=== PATIENT | male | born 1940 | race Caucasian/White ===

== ENCOUNTER 2016-06-18 01:51 | Day surgery (SDC) | payer MEDICARE ==
[~2016-06-18] VITALS: Ht 190.5 cm; Wt 84.0 kg
[2016-06-18] VITALS (22 sets, daily range): BP systolic 116–184; BP diastolic 72–112; PULSE 81–98; RESP 15–26; O2SAT 94–100
[~2016-06-18 01:51] MED LIST: CALC200V NASAL; CALC600T20 PO; CHOL400T3 PO; DABI150C PO; DIGO250T72 PO; INSLIS SUBQ; INSU100V7 SUBQ; LIP40 PO; LISI-571 PO; MAGN500C16 PO; MESA800T PO; METO50TA3 PO; MULT1CAP33 PO; MYCO500T PO; NORT25CA PO; OMEG1050 PO; OMEG300C3 PO; PARO20TA5 PO; PRD5T PO; TACR1CAP PO; TRIM100T PO
[2016-06-18] MEDS ORDERED: fentaNYL-PF 50 mCg/mL 2 mL Inj IVPUSH PRN (06:00)
[2016-06-18] MEDS ORDERED: Benzoc-Butamben-Tetraca Spray 20 Gm Spray TOPICAL ONE ×2 (06:00)
[2016-06-18 07:47] LABS: BASOPHILS % (AUTO) 0.4 % (0-3); EOSINOPHILS % (AUTO) 2.3 % (0-5); MONOCYTES % (AUTO) 12.3 % (4-12); Mean Corpuscular Hemoglobin 29.9 pg (27.0-35.0); Mean Corpuscular Volume 88.5 fL (81-100); Platelet Count 264 bil/L (150-400)
[2016-06-18 08:02] LABS: INR 1.16 ratio
[2016-06-18] MEDS ORDERED: 0.9% Sodium Chloride 1,000 ML IV SCH ×2 (08:27→09:02)
[2016-06-18] MEDS ORDERED: Atropine 1 mg/10 mL (Code) Syringe ONE (08:36)
[2016-06-18] MEDS ORDERED: Flumazenil 0.1 mg/mL 5 mL Inj IV ONE (08:37)
[2016-06-18] MEDS ORDERED: Heparin 10,000 Unit/1,000 mL NS Premix IV ONE (09:47)
[2016-06-18] MEDS ORDERED: Heparin 1,000 Unit/1,000mL NS Premix IV ONE (09:47)
[2016-06-18] MEDS ORDERED: fentaNYL-PF 50 mCg/mL 2 mL Inj ONE (10:06)
[2016-06-18] MEDS ORDERED: Ondansetron 2 mg/mL 2 mL Inj IVPUSH PRN (11:20)
[2016-06-18] MEDS ORDERED: HYDROcodone-APAP 5-325 mg Tablet PO PRN (11:20)
--- NOTE | 2016-06-18 12:45 | PROCED ---
[address] [address] PROCEDURE NOTE PATIENT: PANCHITO LUGO : 1940 MR#: [id number] ADMIT: 06/18/2016 JOB ID: [id number] DATE OF SERVICE: 06/18/2016 PREOPERATIVE DIAGNOSIS(ES): 1. Atrial flutter. 2. Lung transplant. POSTOPERATIVE DIAGNOSIS(ES): 1. Atypical left-sided atrial flutter. 2. Lung transplant. PROCEDURES PERFORMED: 1. Comprehensive electrophysiology study with arrhythmia provocation. 2. Three-dimensional electroanatomic mapping. 3. Fluoroscopy. SURGEON: Bloom Conveyor Operator: Anthony Lamas MD, electrophysiology attending DIGITAL DATA ANALYST: Prabhu Iniguez PA-C, Isac Shin. ANESTHESIA: Bolus dosing of Versed and fentanyl was utilized for an appropriate level of sedation. INDICATION: The patient is a pleasant 76-year-old man with a structurally normal heart, lung transplant 10 years ago, and symptomatic drug refractory atrial flutter. After a discussion of the risks and benefits of catheter-based mapping and ablation, he opted to proceed. PROCEDURE DESCRIPTION: Following informed consent, the patient was taken to the EP laboratory in a fasting nonsedated state where he was prepped and draped in the usual sterile fashion. He underwent a preprocedural transesophageal echocardiogram confirming lack of intracardiac thrombus. This was performed by Dr. Tapia. Please see separate dictated report for the details of that procedure. The right inguinal region was then infiltrated with 1% lidocaine. Then, using modified Seldinger technique, one 8- and two 7-Macanese sheaths were inserted in the right femoral vein. Under fluoroscopic guidance, a deflectable decapolar catheter was advanced to the coronary sinus with the most proximal bipoles at the os of the sinus. A 20 pole isthmus catheter was used to encircle the tricuspid anulus. A J-curved irrigated SmartTouch ablation catheter was brought to the field and advanced to the right atrium and used to create a three-dimensional anatomic map of the cavotricuspid isthmus. With the catheters connected, it was evident that the patient was in atrial flutter; however, left-sided atrial signals were earlier than right. Entrainment maneuvers were undertaken from the cavotricuspid isthmus confirming the isthmus to be out of the circuit, specifically a PPI-PCL from the isthmus was 159 msec. Entrainment maneuvers from the coronary sinus os proved the CS to be within the circuit; specifically distal CS PPI minus PCL was 21 msec, mid CS PPI minus PCL was 47 msec. We were not prepared for left-sided ablation, nor was the patient consented. We therefore did not proceed with any ablation. During course of this study we did complete a comprehensive electrophysiology study with right atrial pacing recording, right ventricular pacing recording, and His bundle recording, coronary sinus catheter. All catheters and sheaths were removed. Manual pressure was held for hemostasis. The decision was made to bring the patient back for dofetilide loading and subsequent cardioversion. COMPLICATIONS: None. ESTIMATED BLOOD LOSS: Negligible. FINDINGS: 1. Baseline rhythm is atrial flutter with a flutter cycle length of 303 msec, QRS duration 94 msec, QT 374 msec. 2. Intracardiac intervals: HV interval 45 msec. 3. Atypical left-sided atrial flutter as described above. IMPRESSION: Atypical left-sided flutter. PLAN: 1. Bed rest x4 hours. 2. Recovery and discharge from the [facility]NA. 3. Resume anticoagulation. 4. Bring the patient back for dofetilide loading with cardioversion. ATTENDING STATEMENT: Anthony Lamas MD, electrophysiology attending, was present for and supervised/performed all aspects of this procedure.
--- NOTE | 2016-06-18 15:31 | NUR ---
Discharge Pt discharged to home with , VSS and WNL on RA throughout recovery, groin sites soft non tender. Pt and pt stated verbal understanding of discharge instructions. pt left with personal belongings at approximately 1530.
--- NOTE | 2016-06-19 12:17 | DRSVH ---
[facility] [address] [place] [address] Echocardiogram Report Name: PANCHITO LUGO Date: 06/18/2016 Hospital Exam Location: [facility] Gender: Male : 1940 Age: 76 yrs BP: 153/100 mmHg Reason For Study: ATYPICAL ATRIAL FLUTTER Performed By: Roseanne Schmid Referring Physician: AUBREY RUFF Interpretation Summary The left ventricular ejection fraction is grossly normal. The left atrium is severely dilated. Spontaneous contrast in LA. No thrombus is detected in the left atrial appendage. No left atrial mass or thrombus visualized. There is moderate mitral regurgitation. The aortic valve is mildly calcified. Spontaneous contrast noted in pulmonary artery. PA and the Left PV appear dilated. Procedure: Informed consent for Transesophageal Echocardiogram, and use of a contrast agent as needed, was obtained prior to the procedure. The patient was brought to the INA in a fasting state. An intravenous line was placed. A topical anesthetic agent was used for oropharangeal anesthesia. A bite block was inserted. The transesophageal probe was passed without difficulty. The patient's vital signs, including blood pressure, heart rate, pulse oximetry and cardiac rhythm were monitored throughout the procedure and remained stable. A 2D transesophageal echocardiogram with spectral and color flow Doppler was performed. The usual views were obtained; basal, mid-esophageal, transgastric and aortic views. The patient tolerated the procedure well without evidence of orophangeal or esophageal trauma. There were no complications. Left Ventricle: The left ventricular ejection fraction is grossly normal. Atria: No left atrial mass or thrombus visualized. No thrombus is detected in the left atrial appendage. Spontaneous contrast in LA. The left atrium is severely dilated. There is no Doppler evidence for an atrial septal defect. Mitral Valve: The mitral valve leaflets appear mildly thickened, but open well. There is moderate mitral regurgitation. Aortic Valve: The aortic valve is trileaflet. The aortic valve is mildly calcified. There is no hemodynamically significant valvular aortic stenosis. No aortic regurgitation is present. Tricuspid Valve: The tricuspid valve leaflets are thin and pliable. There is trace tricuspid regurgitation. Pulmonic Valve: The pulmonic valve leaflets are thin and pliable; valve motion is normal. Great Vessels: Spontaneous contrast noted in pulmonary artery. PA and the Left PV appear dilated. Electronically signed by: Micky Tapia on Reading Physician:06/19/2016 12:16 PM
== END 2016-06-18 23:59 | disposition home or self-care (01) ==
LOC: SOUO 01:51
PROVIDERS: ATTEND Internal Medicine Cardiovascular Disease
DX: I48.4 Atypical atrial flutter (principal); Z94.2 Lung transplant status; Z79.82 Long term (current) use of aspirin
CPT/HCPCS: 36415; 80048; 85025; 85610; 93005; 93613; 93620; 99152; C1730; C1732; C8925; J0131; J1644; J2250; J3010; J7030

== ENCOUNTER 2016-07-01 08:44 | Inpatient (IN) | payer MEDICARE ==
[~2016-07-01] VITALS: Ht 190.5 cm; Wt 83.4 kg
[2016-07-01] VITALS (7 sets, daily range): BP systolic 129–171; BP diastolic 86–116; PULSE 88–105; RESP 18–20; O2SAT 94–97
--- NOTE | 2016-07-01 10:45 | NUR ---
Admit Nurse: Pt direct admit for starting Tikosyn. A/o, able to answer questions appropriately. Admit completed, med rec completed with pt/spouse, home meds given to primary nurse. Pt has hx of lung transplant, taking transplant meds, concerned about availability of transplant meds in hospital. Primary RN aware.
[2016-07-01] MEDS ORDERED: TACR1CAP PO (10:46)
[2016-07-01] MEDS ORDERED: ZIT250 PO (10:48)
[2016-07-01] MEDS ORDERED: Ondansetron 2 mg/mL 2 mL Inj IVPUSH PRN ×2 (13:00→15:05)
[2016-07-01] MEDS ORDERED: Polyethylene Glycol (PEG) 17 Gm Powder PO PRN (13:00)
[2016-07-01] MEDS ORDERED: Alum-Mag Hydrox-Simeth 30 mL Suspension PO PRN (13:00)
[2016-07-01 13:48] LABS: APPEARANCE,URINE CLEAR (CLEAR,HAZY); COLOR,URINE YELLOW (YELLOW); OCCULT BLOOD,URINE NEGATIVE (NEGATIVE); PH,URINE 7.5 (5.0-8.0); UROBILINOGEN,URINE NORMAL (NORMAL)
[2016-07-01] MEDS ORDERED: Heparin 5,000 Unit/mL Inj SUBQ SCH (16:30)
[2016-07-01] MEDS: Sodium Chloride LOK Flush 10 mL Syringe IVFLUSH SCH (16:50)
--- NOTE | 2016-07-01 19:17 | NUR ---
Home meds pt and following up on patients home meds and the dosing schedule. awaiting MD continuing/ordering home meds. message left with Dr. Pierre @ 1915, for parameters of QTc and continuation of home meds.
--- NOTE | 2016-07-01 19:58 | HP ---
[address] [address] HISTORY AND PHYSICAL PATIENT: PANCHITO LUGO : 1940 MR#: [id number] ADMIT: 07/01/2016 JOB ID: [id number] HISTORY: The patient is a 76-year-old male without structural heart disease and a history of idiopathic pulmonary fibrosis status post left lung transplant, insulin-dependent type 2 diabetes, and atrial fibrillation which began approximately two years ago and is associated with fatigue and exertional dyspnea. He has been prescribed high doses of beta blockers, but this treatment has been ineffective. He was referred to Dr. Lamas at [facility]. Dr. Lamas carried out an electrophysiology study which verified that the a-flutter is atypical with a left heart focus. As such, the recommendation was to attempt treatment by pharmacological cardioversion using dofetilide. MEDICAL HISTORY: 1. Atrial flutter. 2. Idiopathic pulmonary fibrosis, status post left lung transplant. 3. Hypertension. 4. Type 2 diabetes. ALLERGIES: 1. LORAZEPAM. 2. MOXIFLOXACIN. 3. PENICILLIN. MEDICATIONS: 1. Atorvastatin 40 mg daily. 2. Azithromycin 250 mg every other day. 3. Miacalcin one nasal spray, I believe, daily. 4. Calcium carbonate 1200 mg daily. 5. Vitamin D3 400 units daily. 6. Pradaxa 150 mg twice a day. 7. Digoxin 250 mcg daily. 8. Insulin glargine 20 units subcu twice a day. 9. Insulin Lispro 1 unit subcu as directed on the vial before meals and at bedtime. 10. Lisinopril 5 mg daily. 11. Magnesium oxide 1500 mg daily. 12. Asacol 800 mg twice a day. 13. Metoprolol tartrate 100 mg three times a day. 14. One multivitamin a day. 15. CellCept 1500 mg twice a day. 16. Nortriptyline [address] Lane-3 fatty acids 1200 mg twice a day. 18. Paroxetine 30 mg daily. 19. Prednisone 5 mg daily. 20. Prograf, uncertain what the dose is. 21. Trimethoprim 100 mg daily. FAMILY HISTORY: There is no relevant family history. SOCIAL HISTORY: The patient is and has good support at home. He previously smoked cigarettes. Does not smoke now and does not drink alcohol. REVIEW OF SYSTEMS: He experiences fatigue and dyspnea on exertion which is associated with his atrial fib/flutter. Otherwise a 14 system review reveals no concerning symptoms. PHYSICAL EXAMINATION: When I evaluated the patient, he was resting comfortably in bed. Blood pressure is 129/89, pulse is 88, respirations 20, SpO2 is 95% on room air. He was awake and alert and in no distress. He is well nourished and well developed. Respirations are nonlabored. Auscultation of the lungs revealed the lungs were clear throughout. There no rales, wheezes, or rhonchi. There is absent breath sounds in the right upper quadrant of the chest. Auscultation of the heart revealed normal S1 and S2. I noted no extra sounds and no murmurs. Heart rate was regular. His skin was warm and dry. Clubbing was absent. There is no cyanosis and there is no mottling of the skin. There is no peripheral edema. Abdomen was soft and nontender. Cranial nerves 2-12 were intact. EKG which revealed atrial flutter with a 2:1 ventricular response. The QT interval was calculated by Dr. Pierre to be about 426 msec. Urine sample was normal. ProBNP was 617.6. ASSESSMENT AND PLAN: This is a 76-year-old male with a history of idiopathic pulmonary fibrosis, status post left lung transplant, insulin-dependent type 2 diabetes and persistent atrial flutter which began about two years ago and is associated with fatigue and exertional dyspnea. Dr. Lamas recommended that the patient undergo an attempt at pharmacological cardioversion with dofetilide. We will get a baseline EKG. We will also get a baseline basic metabolic panel. We will stop meds that can safely be stopped which prolong QT interval. Those include Paxil, nortriptyline, digoxin, Zithromax and trimethoprim. We will calculate creatinine clearance which we expect to be above 60 mL per minute and as such, we will start the patient on 500 mcg of dofetilide b.i.d. We will get an EKG two hours after every dose of the medication to monitor QT interval and adjust the medication as is appropriate.
[2016-07-01] MEDS ORDERED: Insulin LISPRO Individual-Dose Scale SUBQ PRN (22:00)
[2016-07-01] MEDS: Insulin LISPRO Individual-Dose Scale SUBQ SCH (22:00)
[2016-07-01] MEDS: Insulin GLARgine 100 Unit/mL Syringe SUBQ SCH (23:25)
[2016-07-01] MEDS: Omega-3 Fatty Acids 1,000 mg Capsule PO SCH (23:26)
[2016-07-01] MEDS: MESALAMINE 800 MG PO SCH (23:29)
[2016-07-01] MEDS: Dabigatran 150 mg Capsule PO SCH (23:35)
[2016-07-02] VITALS (8 sets, daily range): BP systolic 117–164; BP diastolic 80–117; PULSE 93–114; RESP 16–18; O2SAT 92–97
[2016-07-02] MEDS: Sodium Chloride LOK Flush 10 mL Syringe IVFLUSH SCH ×3 (00:30→17:15)
--- NOTE | 2016-07-02 06:43 | NUR ---
Sotalol Pt started sotalol loading this evening. QTc after medications was 455, per Dr. Cunningham we are to call if QTc reaches 480. VSS and Tele SR.
[2016-07-02] MEDS: Insulin LISPRO Individual-Dose Scale SUBQ SCH ×4 (07:30→20:48)
[2016-07-02] MEDS ORDERED: MULT-666 PO (08:12)
[2016-07-02] MEDS ORDERED: PARO30TA4 PO (08:21)
[2016-07-02] MEDS ORDERED: CHOL100045 PO (08:28)
[2016-07-02] MEDS ORDERED: ASCO-294 PO (08:28)
[2016-07-02] MEDS ORDERED: SULF1TAB34 PO (08:49)
[2016-07-02] MEDS ORDERED: MAGN100T6 PO (08:51)
[2016-07-02] MEDS ORDERED: MAGN500C4 PO (08:51)
[2016-07-02] MEDS: Calcium Carbonate (Oyster Shell) 500 mg Tablet PO SCH (09:21)
[2016-07-02] MEDS: TACROLIMUS PO SCH ×2 (09:22)
[2016-07-02] MEDS: predniSONE 5 mg Tablet PO SCH (09:22)
[2016-07-02] MEDS: Omega-3 Fatty Acids 1,000 mg Capsule PO SCH ×2 (09:22→21:25)
[2016-07-02] MEDS: Dabigatran 150 mg Capsule PO SCH ×2 (09:23→20:41)
[2016-07-02] MEDS: Calcitonin 200 IU 3.7 mL Nasal Spray NASAL SCH (09:24)
[2016-07-02] MEDS: Insulin GLARgine 100 Unit/mL Syringe SUBQ SCH ×2 (09:25→20:47)
--- NOTE | 2016-07-02 11:52 | NUR ---
Social Work: Initial Assessment Data: Pt is a 76 y/o male admitted for tikosyn loading. Pt's PCP is listed as other. Pt's insurance is [employer]. EMR reviewed. Pt's readmit score is 3. ELEMENTARY ASSISTANT TEACHER met with pt at bedside, role explained. Pt states he lives in [place] in a two story home with his where he uses no DME. Pt drives, has no hx of HH or SNF, no LTC or VA benefits, is not a caregiver, and denies any needs. Pt states his will drive him home at d/c. He states he has been up and independent in the room. ELEMENTARY ASSISTANT TEACHER will continue to follow. Assessment: Pt who is independent at baseline. Plan: Pt will d/c home via POV when medically stable. No d/c planning needs anticipated at this time. ELEMENTARY ASSISTANT TEACHER will continue to follow if needs arise. TO Garvey Addendum: 07/02/16 at 1154 by JUNE YANG Amended: Links added.
--- NOTE | 2016-07-02 14:26 | NUR ---
Hypertension Patient hypertensive, systolic BP in the 150s-160s, with no change after AM BP meds given. MD bo, states he will be in to see patient this afternoon. Addendum: 07/02/16 at 1801 by ANGELO JIANG RN Patient normotensive this afternoon. NO changes at this time.
[2016-07-02] MEDS: MESALAMINE 800 MG PO SCH (20:41)
[2016-07-02] MEDS: ALPRAZolam 0.5 mg Tablet PO SCH (21:25)
--- NOTE | 2016-07-02 22:29 | PROG NOTE ---
[address] [address] PROGRESS NOTE PATIENT: PANCHITO LUGO : 1940 MR#: [id number] ADMIT: 07/01/2016 JOB ID: [id number] DATE: 07/02/2016 INTERVAL HISTORY: The patient is admitted for sotalol loading. The patient has a history of status post lung transplant, atrial flutter, status post failed ablation. The patient was indicated on sotalol 80 mg twice daily. The patient received 2 doses of sotalol so far and reported no side effects. He does complain of occasional anxiety, usually with evaluation of his blood pressures. Otherwise, the patient is very comfortable and has no complaints. His baseline labs were drawn and revealed. PHYSICAL EXAMINATION: VITAL SIGNS: His blood pressure is 117/80 and pulse 180. EKG shows atypical flutter. The QT interval is variable due to underlying flutter waves, averaging somewhere between 400 to 440 msec. ASSESSMENT: Atrial flutter on sotalol loading. Corrected QT intervals within acceptable limits. PLAN: 1. To continue with sotalol. 2. The patient reported anxiety and I am starting him on Xanax 0.5 mg at bedtime. 3. Status post lung transplantation is currently on his antirejection medications. His medications of digoxin, paroxetine, trimethoprim and Zithromax were held at this time. I will follow up with him tomorrow.
[2016-07-03] VITALS (10 sets, daily range): BP systolic 72–159; BP diastolic 56–95; PULSE 103–118; RESP 16–24; O2SAT 93–100
[2016-07-03] MEDS: Sodium Chloride LOK Flush 10 mL Syringe IVFLUSH SCH ×4 (01:00→20:39)
--- NOTE | 2016-07-03 06:24 | NUR ---
Sotolol/Tele/Lung gave Sotolol and EKG @ 2 Hrs post , Qtc's 480. Hr elevate with activity , up to 150's while ambulation. A&O x3 using call light appropriately, room air, saline locked, Lung sounds diminished , rt lung transplant Tele: A-Flutter 110 , in room assisting w ADL
[2016-07-03] MEDS: Insulin LISPRO Individual-Dose Scale SUBQ SCH ×4 (07:30→20:36)
[2016-07-03] MEDS: Insulin GLARgine 100 Unit/mL Syringe SUBQ SCH ×2 (10:05→20:34)
[2016-07-03] MEDS: Calcium Carbonate (Oyster Shell) 500 mg Tablet PO SCH (10:06)
[2016-07-03] MEDS: Dabigatran 150 mg Capsule PO SCH ×2 (10:06→20:34)
[2016-07-03] MEDS: predniSONE 5 mg Tablet PO SCH (10:06)
[2016-07-03] MEDS: TACROLIMUS PO SCH ×2 (10:06)
[2016-07-03] MEDS: Calcitonin 200 IU 3.7 mL Nasal Spray NASAL SCH (10:07)
[2016-07-03] MEDS: Omega-3 Fatty Acids 1,000 mg Capsule PO SCH ×2 (10:08→20:33)
[2016-07-03] MEDS: MESALAMINE 800 MG PO SCH ×2 (10:09→20:33)
--- NOTE | 2016-07-03 19:13 | NUR ---
Blood Pressure This AM his blood pressure was 92/58. Notified Dr. Pierre who said to go ahead and give the Sotalol as it does not typically affect the blood pressure. Gave it and his blood pressure upon recheck about noon was 127/73. It was also noted that his blood pressures in each arm are off by about 20 mm Hg systolically. Monitoring and will notify the MD in the morning. Care continues.
--- NOTE | 2016-07-03 22:09 | PROG NOTE ---
[address] [address] PROGRESS NOTE PATIENT: PANCHITO LUGO : 1940 MR#: [id number] ADMIT: 07/01/2016 JOB ID: [id number] DATE: 07/03/2016 PROBLEM LIST: 1. Atrial flutter status post left lung transplant. 2. Hypertension. The patient was admitted to the hospital for sotalol loading followed by cardioversion in an attempt to abort his persistent atrial flutter. The patient has received his 3rd dose of sotalol. No symptoms reported. He is doing otherwise very well. His vital signs are blood pressure 127/73, pulse of 118. The EKG was performed this morning. The corrected QT interval was 438 msec. PLAN: Continue with sotalol 80 [address] again [address] evening[address]. Lamas is going to take over his care from July 04, 2016. I have already informed him about his overall condition and he is aware of it.
[2016-07-03] MEDS: ALPRAZolam 0.5 mg Tablet PO SCH (22:31)
[2016-07-04] VITALS (8 sets, daily range): BP systolic 109–147; BP diastolic 74–94; PULSE 113–120; RESP 16–22; O2SAT 92–97
--- NOTE | 2016-07-04 03:07 | NUR ---
Sotalol/EKG Sotalol given as scheduled , EKG ordered 2 hours later, HXm=[id number]. A&O x3 using call light appropriately, independent in room to toilet and ambulate the hallway. Saline locked, Room Air, in room assisting w ADL. Telemetry: A-Flutter 112
[2016-07-04] MEDS: Insulin LISPRO Individual-Dose Scale SUBQ SCH ×4 (08:29→22:00)
[2016-07-04] MEDS: predniSONE 5 mg Tablet PO SCH (08:30)
[2016-07-04] MEDS: TACROLIMUS PO SCH ×2 (08:30)
[2016-07-04] MEDS: Calcium Carbonate (Oyster Shell) 500 mg Tablet PO SCH (08:30)
[2016-07-04] MEDS: Sodium Chloride LOK Flush 10 mL Syringe IVFLUSH SCH ×3 (08:31→17:22)
[2016-07-04] MEDS: Calcitonin 200 IU 3.7 mL Nasal Spray NASAL SCH (08:31)
[2016-07-04] MEDS: MESALAMINE 800 MG PO SCH ×2 (08:32→20:22)
[2016-07-04] MEDS: Omega-3 Fatty Acids 1,000 mg Capsule PO SCH ×2 (08:32→20:21)
[2016-07-04] MEDS: Insulin GLARgine 100 Unit/mL Syringe SUBQ SCH ×2 (08:33→22:09)
[2016-07-04] MEDS: Dabigatran 150 mg Capsule PO SCH ×2 (08:33→20:21)
--- NOTE | 2016-07-04 18:33 | NUR ---
Activity/BG Pt. independent in room. Up to walk the halls several times today. On RA, but uses 1-2 L NC for comfort when he takes naps r/t hx lung transplant. Pt. doses his own lispro. Did not give any insulin at lunch with BG 167, d/t pt. being NPO from 0930 this a.m. for possible cardioversion. At dinner, BG 95. 12 units lispro given. Pt. ate 100% of dinner.
[2016-07-04] MEDS: ALPRAZolam 0.5 mg Tablet PO SCH (20:22)
[2016-07-05] VITALS (7 sets, daily range): BP systolic 96–140; BP diastolic 67–104; PULSE 81–121; RESP 18–26; O2SAT 93–99
[2016-07-05] MEDS: Sodium Chloride LOK Flush 10 mL Syringe IVFLUSH SCH ×6 (00:30→08:41)
--- NOTE | 2016-07-05 05:49 | NUR ---
Tele/Sotalol Loading Patient continues to be in a-flutter with rates in the 100-110s. Denies chest discomfort, is short of breath at baseline. QTc on EKG taken two hours post-sotalol dose is 457. NPO after midnight for planned cardioversion. Continue to monitor.
[2016-07-05] MEDS: Insulin LISPRO Individual-Dose Scale SUBQ SCH (07:30)
[2016-07-05] MEDS: Insulin GLARgine 100 Unit/mL Syringe SUBQ SCH (08:38)
[2016-07-05] MEDS: Calcium Carbonate (Oyster Shell) 500 mg Tablet PO SCH (08:39)
[2016-07-05] MEDS: TACROLIMUS PO SCH ×2 (08:39)
[2016-07-05] MEDS: Dabigatran 150 mg Capsule PO SCH (08:39)
[2016-07-05] MEDS: Omega-3 Fatty Acids 1,000 mg Capsule PO SCH (08:39)
[2016-07-05] MEDS: predniSONE 5 mg Tablet PO SCH (08:40)
[2016-07-05] MEDS: MESALAMINE 800 MG PO SCH (08:42)
[2016-07-05] MEDS: Calcitonin 200 IU 3.7 mL Nasal Spray NASAL SCH (08:42)
--- NOTE | 2016-07-05 10:28 | NUR ---
MARA: Patient out for cardioversion and unavailable for MARA.
--- NOTE | 2016-07-05 10:30 | PCM.HPANE ---
Patient Data Surgeon Admitting Provider:Eliu Pierre MD Attending Provider:Eliu Pierre MD Primary Care Physician:Other,Physician Other Provider: Reason for Visit Tikosyn Loading Ht/WT & BMI Height (Feet): 6 Height (Inches): 3.00 Weight (Kilograms): 83.400 Body Mass Index 22.86 Allergies Coded Allergies: Penicillins (Verified Allergy, Intermediate, Rash, 06/18/16) amoxicillin (Verified Allergy, Intermediate, Rash, 06/18/16) lorazepam (Verified Allergy, Intermediate, Agitation, 06/18/16) Past Anesthesia History Anesthesia History: Denies:: Abnormal Airway, Anesthesia Reactions, Difficult Intubation Diabetes History Hx Diabetes?: Yes Type of Diabetes: Type I Current Bedside Blood Glucose: 140 MRSA MRSA: No Medications Hypertension Medication: Yes Home Meds Incl Beta Torres: Yes Date Beta Torres Taken: Jul 05, 2016 Time Beta Torres Taken: 08:30 Reported Medications Magnesium Citrate 100 Mg Foxzys065 Mg PO BID 07/02/16 Magnesium Oxide (Magnesium)500 Mg Yyivyhl034 Mg PO BID 07/02/16 Sulfamethoxazole/Trimeth 400-80 mg (Bactrim 400-80 mg)1 Each Tablet1 Tablet PO HS 07/02/16 Ascorbate Calcium (Vitamin C)500 Mg Bjqetq391 Mg PO BID 07/02/16 Cholecalciferol (Vitamin D3) (Vitamin D)1,000 Unit Capsule1,000 Unit PO BID 07/02/16 Paroxetine 30 Mg Rdzyud41 Mg PO HS 07/02/16 Multivitamin (Once Daily)1 Each Tablet1 Tablet PO QAM 07/02/16 Azithromycin (Zithromax)250 Mg Tefpbs128 Mg PO every other day 07/01/16 Tacrolimus (Prograf)1 Mg Capsule1 Mg PO QPM 07/01/16 Tacrolimus (Prograf)1 Mg Capsule1.5 Mg PO QAM 06/17/16 Prednisone (PredniSONE)5 Mg Tab5 Mg PO QAM 06/17/16 Dabigatran Etexilate Mesylate (Pradaxa)150 Mg Movyzbq546 Mg PO BID 06/17/16 Nortriptyline 25 Mg Wgxjzbn24 Mg PO HS 06/17/16 Metoprolol Tartrate 50 Mg Tenmhq469 Mg PO TID 06/17/16 Lisinopril 5 Mg Tablet5 Mg PO DAILY 06/17/16 Atorvastatin (Lipitor)40 Mg Jgdzuc04 Mg PO QPM 06/17/16 Insulin Glargine (Lantus U100 Insulin Vial)100 Unit/Ml Vial20 Unit SUBQ BID 06/17/16 Insulin Human Lispro (HumaLOG U100 Insulin Vial)100 Unit/Ml Unit1-12 Unit SUBQ ACHS PRN Hyperglycemia Check blood sugars before meals and at bedtime. Use correction factor only before meals. Blood Sugar Lispro Correction: <151, 0 units; 151-175, 1 unit; 176-200, 2 units; 201-225, 3 units; 226-250, 4 units; 251-275, 5 units; 276-300, 6 units; 301-325, 7 units; 326-350, 8 units; 351-375, 9 units; 376-400, 10 units; >400, 12 units. 06/17/16 [place]-3 Fatty Acids (Fish Oil)300 Mg Capsule1,200 Mg PO BID 06/17/16 Digoxin 250 Mcg Qamxfc762 Mcg PO DAILY 06/17/16 Calcium Carbonate 600 Mg Tablet1,200 Mg PO DAILY Calcium supplement 06/17/16 Mycophenolate Mofetil (Cellcept)500 Mg Tablet1,000 Mg PO BID 06/17/[address] (Asacol HD)800 Mg Oqmcmc476 Mg PO BID 06/17/16 Discontinued Reported Medications Cholecalciferol (Vitamin D3) (Vitamin D3)400 Unit Tab.lobq718 Unit PO DAILY 06/17/16 Trimethoprim 100 Mg Vzirrp886 Mg PO HS Ref 0 06/17/16 Paroxetine 20 Mg Ogikhw34 Mg PO DAILY 30 Days Ref 0 06/17/16 Calcitonin,[place],Synthetic (Miacalcin)200 Unit/1 Ml Vial1 Unit NASAL DAILY 06/17/16 [place]-3S/Dha/Epa/Fish Oil ([place] Power 1,050 mg Softgel)1,050 Mg Capsule2,100 Mg PO DAILY 06/17/16 History History of ENT Problems?: Yes HEENT History: Positive for:: Cataracts (surgery 2016) Denies:: Abnormal Airway Difficult Intubation Dysphagia Glaucoma Sinus Problem Hx of Heart Problems?: Yes Cardiovascular History: Positive for:: Chest Pain Irregular Heartbeat (Afib/flutter, starting Tikosyn this admit 07/01/16) Denies:: Cardiac Surgery Congestive Heart Failure Edema Heart Murmur Hypertension Pacemaker Thrombophlebitis Hx of Respiratory Problem?: Yes Respiratory History: Positive for:: Chest Surgery (lung transplant 2002) Dyspnea Denies:: Asthma COPD Emphysema Hemoptysis Pneumonia Tuberculosis Other Resp Pertinent History: idiopathic pulmonary fibrosis Hx Neurologic Problems?: Yes Neurological History: Positive for:: Dizziness (has to get up slowly) Denies:: Alzheimer's Disease CVA Dementia Headaches Parkinson's Disease Seizures Hx of GI Problems?: Yes Gastrointestinal History: Positive for:: Gastroesphageal Reflux Gastrointestinal Bleeding ( fudlipication 2006) Heartburn Denies:: Diverticulitis Hepatitis Hiatal Hernia Rectal Bleeding Hx of Problems?: No Genitourinary History: Denies:: HX of Hemodialysis Kidney Stones Urinary Tract Infection HX of Peritoneal Dialysis: No Male Hx: Denies:: Prostate Problems Scrotal Mass Testicular Surgery Hx Musculoskeletal Problems?: No Hx of Psycho/Social Problems?: Yes Psycho Social History: Positive for:: Anxiety (occasional panic attacks, claustrophobia) Denies:: Bipolar Disorder Hx Depression Suicide Attempt Hx Surgeries?: Yes (lung transplant, fundlipication, tonsillectomy) Hx Any Other Health Problems?: Yes Other History: Positive for:: Cancer (basal cell carcinoma 2014) Hospitalization (surgeries) Denies:: Thyroid Disease History Blood Transfusions: Positive for:: Accept Blood Products? Blood Transfusions Denies:: Blood Transfuse Reaction Hx Diabetes: YesBedside Blood Glucose: 140 Hx Alcohol Use: Yes (rarely)Hx Substance Use: No Smoking Status: Former Smoker Stop/Bang Treated for Sleep Apnea?: Yes (pt unable to tolerate Cpap machine, uses home O2 ) Do You Have a CPAP Machine?: No GEO Category 4 OutPt Procedure: Yes Risk Assessment Category Category 1A: Patient has history of documented sleep apnea, and HAS NOT received any narcotic, sedative or anesthesia administration during this stay. Category 1B: Patient has history of documented sleep apnea, and HAS received any narcotic , sedative or anesthesia administration during this stay Category 2: Patient has SUSPECTED Obstructive Sleep Apnea, and HAS received any narcotic , sedative or anesthesia administration during this stay. Category 3: Patient has SUSPECTED Obstructive Sleep Apnea and HAS NOT received narcotic, sedative or anesthesia administration during this stay. Category 4: Outpatient in Procedural Areas with known sleep apnea or who screen positive for High Risk via the STOP/BANG questionnaire. Exam Exam Vital Signs Vital Signs Date Time Temp Pulse Resp B/P Pulse Ox O2 Delivery O2 Flow Rate FiO2 07/05/16 08:21 Supplement Oxygen 07/05/16 08:21 36.5 121 24 140/104 99 Room Air 1.00 07/05/16 08:00 119 07/05/16 04:51 111 07/05/16 03:53 36.4 112 19 109/70 96 Nasal Cannula 1.00 General Appearance: Alert, Oriented X3, Cooperative, No Acute Distress HEENT/AIRWAY: MP 2 Lungs: Clear to Auscultation, Normal Air Movement Heart: Exam Unremarkable, Regular Rate/Rhythm, No Murmurs/Rubs/Gallops Meds/Labs/Diagnostics Admission Meds Current Medications Sodium Chloride (Saline Pal Flush) 10 ml PAL IVFLUSH Last administered on t 03:50; Start 07/04/16 at 16:30 Bedside Blood Glucose: 140 Labs Test 07/01/16 13:09 07/01/16 13:43 07/01/16 17:55 Urine Color Yellow (YELLOW) Urine Appearance Clear (CLEAR,HAZY) Urine pH 7.5 (5.0-8.0) Urine Specific [place] 1.010 (1.003-1.035) Urine Protein Negativemg/dL (NEG,TRACE) Urine Glucose (UA) Negativemg/dL (NEGATIVE) Urine Ketones Negativemg/dL (NEGATIVE) Urine Occult Blood Negative (NEGATIVE) Urine Nitrite Negative (NEGATIVE) Urine Bilirubin Negative (NEGATIVE) Urine Urobilinogen Normalmg/dL (NORMAL) Urine Leukocyte Esterase Negative (NEGATIVE) Urine RBC 0-2/hpf (0-2) Urine WBC 0-5/hpf (0-5) Urine Epithelial Cells Occasional/hpf (NONE-MOD) Urine Crystals None seen (NONE SEEN) Urine Bacteria Few/hpf (NONE-FEW) Urine Hyaline Casts None/lpf (NONE) Urine Granular Casts None seen (NONE SEEN) Urine Waxy Casts None seen (NONE SEEN) Urine Red Blood Cell Casts None seen (NONE SEEN) Urine White Blood Cell Casts None seen (NONE SEEN) Urine Mucus None seen (None Seen) Urine Trichomonas None seen (NONE SEEN) Urine Yeast None (NONE SEEN) Urinalysis Comment None Urine Culture Reflexed Not indicated Hold Urine Received (Received) Pro-B-Type Natriuretic Peptide 617.6pg/mL (0-486) Hold [place] Top Tube Received (Received) Sodium Level 136mEq/L (134-144) Potassium Level 4.4mEq/L (3.5-5.2) Chloride Level 97mEq/L (97-108) Carbon Dioxide Level 27mmol/L (18-29) Blood Urea Nitrogen 25mg/dL (8-27) Creatinine 1.11mg/dL (0.76-1.27) Estimat Glomerular Filtration Rate 69mL/min (>59) Glucose Level 189mg/dL (60-99) Calcium Level 9.4mg/dL (8.5-10.1) Plan Impression Patient chart reviewed, patient interviewed and anesthestic plan with risks, benefits, and alternatives discussed, and informed consent obtained. ASA Physical Status: ASA3 Severe Disease (14 yrs out from successful lung transplant) Anesthetic Plan: MAC Bene/Risks/Altern/Consents: Yes HP Complete Prior to Induction: Yes Dinh Fritz MD Jul 05, 2016 10:30
[2016-07-05] MEDS ORDERED: Lactated Ringer's 1,000 ML IV SCH (10:31)
[2016-07-05] MEDS ORDERED: Lactated Ringer's 500 ML IV PRN (10:31)
[2016-07-05] MEDS ORDERED: fentaNYL-PF 50 mCg/mL 2 mL Inj IVPUSH PRN (10:35)
[2016-07-05] MEDS ORDERED: HYDROmorphone 1 mg/mL Inj IVPUSH PRN (10:35)
[2016-07-05] MEDS ORDERED: Dexamethasone 4 mg/mL Inj IVPUSH PRN (10:35)
[2016-07-05] MEDS ORDERED: EPHEDrine Sulfate 50 mg/mL Inj IVPUSH PRN (10:35)
[2016-07-05] MEDS ORDERED: MetoCLOpramide 5 mg/mL 2 mL Inj IVPUSH PRN (10:35)
--- NOTE | 2016-07-05 12:12 | NUR ---
Social Work: Discharge Data/Assessment: Pt was cardioverted this morning and now has discharge orders. ESTIMATION MANAGER briefly staffed pt with dielectric machine operator- he has no concerns sending pt home; no needs identified. ESTIMATION MANAGER met with pt to reassess and confirm discharge plan. Pt states he has been ambulating I during admission and has been stable with ambulation. Pt states his will transport. EMR reviewed; no social work needs identified at this time. Plan: Pt to discharge home via POV; no sw needs. TO [place]
--- NOTE | 2016-07-05 12:22 | PCM.DIMED ---
Discharge Instructions Date of Service Jul 05, 2016 Dates of Hospitalization Jul 01, 2016 at 08:44 Discharge Diagnosis Discharge Diagnosis Atypical Atrial Flutter Idiopathic Pulmonary Fibrosis Lung transplant, has single lung Hypertension Diabetes Diet Heart Healthy, Diabetic Activity No restrictions Call your provider Other (Rapid palpitations, fainting or near fainting) Patient Instructions Provider: Anthony Lamas MD Follow-up in: 6 weeks (Friday, August 12, 2016 at 2:00) Prabhu Iniguez PA-C Jul 05, 2016 12:22
[2016-07-05] MEDS ORDERED: ALPR0.5T8 PO (12:39)
[2016-07-05] MEDS ORDERED: BET80 PO (12:39)
[2016-07-05] MEDS ORDERED: CALC3.8S NASAL (12:45)
[2016-07-05] MEDS ORDERED: ASCO-294 PO (12:45)
--- NOTE | 2016-07-05 13:34 | PROCED ---
[address] [address] PROCEDURE NOTE PATIENT: PANCHITO LUGO : 1940 MR#: [id number] ADMIT: 07/01/2016 JOB ID: [id number] DATE OF SERVICE: 07/05/2016 PREOPERATIVE DIAGNOSIS(ES): Atypical atrial flutter. POSTOPERATIVE DIAGNOSIS(ES): Sinus rhythm. PROCEDURE PERFORMED: Direct current cardioversion. SURGEON: Anthony Lamas MD. SEDATION: Monitored anesthesia care was provided by the Anesthesiology Service. INDICATION: The patient is a pleasant, 76-year-old man with lung transplant, atypical atrial flutter, who has been anticoagulated and underwent a MICHAEL to confirm lack of intracardiac thrombus. He has come in for sotalol load, and after discussion of risks and benefits of cardioversion, he opted to proceed. PROCEDURAL DESCRIPTION: Following informed signed consent, the patient was taken to the procedure room in a fasting state where defibrillator patches were placed in the anterior and posterior positions. After adequate sedation, a 200-joule, biphasic synchronized shock was used to convert him to sinus rhythm. He will be allowed to recover and be discharged home for close followup. COMPLICATIONS: None. ESTIMATED BLOOD LOSS: None. IMPRESSION: Successful direct-current cardioversion. PLAN: 1. Recovery and discharge later today. 2. EKG in sinus rhythm to assess QT interval on sotalol. 3. Follow up with myself, Prabhu Iniguez, or Dr. Pierre in 3-4 weeks. ATTENDING STATEMENT: Anthony Lamas MD, electrophysiology attending, was present for and supervised/performed all aspects of this procedure.
[2016-07-05] MEDS ORDERED: Propofol 10,000 mCg/mL 20 mL Inj ONE (14:02)
--- NOTE | 2016-07-05 14:11 | NUR ---
Discharge Pt discharged to home, with transport by his spouse. Pt IV's dc'd intact, telemetry removed and tech notified. Pt new medications, discharge instructions, and follow up appointments reviewed. All questions answered and pt voiced understanding. All belongings were gathered for transport home with pt. Pt was escorted off unit by [facility] to [facility] for transport.
--- NOTE | 2016-07-05 14:29 | DIS ---
[address] [address] DISCHARGE SUMMARY PATIENT: PANCHITO LUGO : 1940 MR#: [id number] ADMIT: 07/01/2016 JOB ID: [id number] DIS: 07/05/2016 REASON FOR ADMISSION: Start new medication for antiarrhythmic therapy of atrial fibrillation. CHIEF COMPLAINT: Rapid palpitations, fatigue, and exertional dyspnea. BRIEF HISTORY: The patient is a very pleasant, 76-year-old man without structural heart disease, who has had a history of idiopathic pulmonary fibrosis for which he has received a single lung transplant. He also has insulin-dependent type 2 diabetes and an atypical atrial flutter. He was admitted by his cp bleacher operator, Dr. Eliu Pierre, to start antiarrhythmic therapy with Tikosyn for the atrial flutter with the anticipation of a cardioversion later in the week. COURSE IN HOSPITAL: The patient was started on Tikosyn but then switched to sotalol due to possible drug interaction with the Tikosyn. After several doses of sotalol 80 mg b.i.d., his QT interval did not prolong. The intention was on the 4th day of hospitalization to perform a cardioversion. Dr. Pierre had spoken with Dr. Lamas regarding taking over the man's care due to the need to be out of town. When it came time to do the cardioversion, we had concerns about the risk involved due to the patient's history of lung transplant and his insulin-dependent diabetes. Arrangements were made on the day for anesthesia to be able to help with the sedation and anesthesia for the cardioversion. It was undertaken then performed quite successfully without any complications. He maintained sinus rhythm afterward and the EKG showed a QTc of 444 msec. He felt well for discharge home. DISPOSITION: The patient was discharged home in good condition with a followup appointment for post cardioversion with Dr. Lamas in six weeks. He has no activity restrictions and will continue to follow his diabetic and heart healthy diets. DISCHARGE MEDICATIONS: 1. Alprazolam 0.5 mg q.h.s. 2. Calcitonin spray once daily. 3. Sotalol 80 mg b.i.d. 4. Atorvastatin 40 mg daily. 5. Calcium carbonate 1200 mg daily. 6. Vitamin D3 1000 units b.i.d. 7. Pradaxa 150 mg b.i.d. 8. Insulin glargine 20 units b.i.d. 9. Insulin Lispro 1-12 units subcu a.c. and h.s. p.r.n. 10. Lisinopril 5 mg daily. 11. Magnesium citrate 500 mg b.i.d. 12. Magnesium oxide 500 mg b.i.d. 13. Mesalamine DR 800 mg b.i.d. 14. Multivitamin once daily. 15. Mycophenolate 1000 mg b.i.d. 16. [place]-3 fatty acids fish oil gel cap 1200 mg b.i.d. 17. Prednisone 5 mg q.a.m. 18. Sulfamethoxazole/trimethoprim 400/80 mg one tablet q.h.s. 19. Tacrolimus 1.5 mg q.a.m. 20. Tacrolimus 1 mg q.p.m. 21. Vitamin C 500 mg daily. FINAL DIAGNOSES: Atypical atrial flutter. Idiopathic pulmonary fibrosis with prior lung transplant of a single lung. Hypertension. Diabetes.
--- NOTE | 2016-07-06 10:08 | PROG NOTE ---
[address] [address] PROGRESS NOTE PATIENT: PANCHITO LUGO : 1940 MR#: [id number] ADMIT: 07/01/2016 JOB ID: [id number] DATE: 07/04/2016 CHIEF COMPLAINT: Palpitations, fatigue, and exertional dyspnea. SUBJECTIVE: The patient is a pleasant 76-year-old man who was admitted for starting new antiarrhythmic therapy with dofetilide, but that was switched over to sotalol due to medication conflict. He was admitted by his driver/sales workers, Dr. Eliu Pierre, but care was transferred to Dr. Lamas due to the additional day in the hospital and for cardioversion. The patient has been tolerating the sotalol well, but his pulse has remained rapid and he has continued in his atypical atrial flutter. He is ambulatory without difficulty and has no specific complaints or symptoms that might be side effects of the medication. OBJECTIVE: The 12 lead ECG this morning shows the atypical atrial flutter with a ventricular rate of 117 BPM and a QT of 333 msec and QTc of 465 msec. His vital signs are stable with BP 147/94, pulse 118, oximetry 97% on room air. His physical exam is unchanged from previous days. ASSESSMENT and PLAN: The patient has been started on sotalol and has had at least five doses at this point. We will plan on a cardioversion later today, as he had breakfast this morning at 9:00. The atrial flutter is persistent and unlikely to stop on its own. He will be held nothing by mouth for 8 hours because he is diabetic, and there may be slow gastric emptying. Once converted to sinus rhythm, he should be stable and ready for discharge home. [facility]
== END 2016-07-05 14:03 | disposition home or self-care (01) | DRG 309 ==
LOC: PCC 08:44
PROVIDERS: ADMIT Internal Medicine Cardiovascular Disease; ATTEND Internal Medicine Cardiovascular Disease
PROC: 5A2204Z Restoration of Cardiac Rhythm, Single (ICD-10-PCS; principal; 2016-07-05 10:30)
DX: I48.4 Atypical atrial flutter (principal); Z94.2 Lung transplant status; I10 Essential (primary) hypertension; E11.9 Type 2 diabetes mellitus without complications; Z79.01 Long term (current) use of anticoagulants; Z87.891 Personal history of nicotine dependence